=== PATIENT | female | born 1985 | race Caucasian/White ===

== ENCOUNTER 2016-05-10 19:33 | Observation (INO) | payer OTHER ==
[2016-05-10] MEDS ORDERED: SODIUM CHLORIDE 0.9% 1,000 ML IV STA (21:21)
[2016-05-10] MEDS ORDERED: ONDANSETRON 4 MG/2 ML VIAL IVP STA (21:21)
[2016-05-10] MEDS ORDERED: HYDROmorphone 1 MG/ML 1 ML SYRINGE IVP STA ×2 (21:21→23:20)
--- NOTE | 2016-05-10 21:28 | ED ---
Abdominal Pain HPI <DariuszGolden - Last Filed: 05/11/16 01:18> - General Source: patient, RN notes reviewed Mode of arrival: ambulatory Limitations: no limitations <DanielleKasie - Last Filed: 05/11/16 03:46> - General Chief Complaint: Abdominal Pain Stated Complaint: sore throat/upper abdominal & lower back pain Time Seen by Provider: 05/10/16 21:11 - History of Present Illness Initial Comments: Patient is a 31-year-old female with chief complaint of upper abdominal pain radiating to her right back for approximately 1 day. She also reports that she' s had a sore throat for the past 2 weeks. She states that she had a esophageal scope in the told her that she had an infection within her esophagus. Patient reports that this was completed [facility] a week and a half ago. She states that she received the scope at [facility] that she was trying to discover why she frequently gets pancreatitis. Patient reports that her phone was turned off and that she was unable to receive be called in antibiotics. She states that she's had no Motrin Tylenol for pain. She reports that she's had a history of alcoholic pancreatitis. She states that she has not been drinking or denies any other drug use. She states that this abdominal paiN is similar to previous episodes of pancreatitis. Patient reports that she has been admitted approximately 2 months ago for pancreatitis. She states that she's had nausea, but no vomiting and denies any diarrhea. Patient denies any recent shortness of breath, chest pain, numbness or tingling , dysuria or hematuria, constipation or diarrhea, headaches or visual changes, or any other current symptoms (Kasie Santos) - Related Data Home Medications Medication Instructions Recorded Confirmed Ranitidine HCl [Zantac] 75 mg PO BID 05/10/16 05/10/16 Allergies Allergy/AdvReac Type Severity Reaction Status Date / Time ciprofloxacin [From Cipro] Allergy Rash/Hives Verified 05/10/16 21:22 codeine Allergy Rash/Hives Verified 05/10/16 21:22 Penicillins Allergy Unknown Verified 05/10/16 21:22 Childhood tramadol [From Ultram] Allergy Unknown Verified 05/10/16 21:22 tramadol HCl [From Ultram] Allergy seizures Verified 05/10/16 21:22 ibuprofen AdvReac Abdominal Verified 05/10/16 21:22 Pain Review of Systems ROS Other: All systems not noted in ROS Statement are negative. <Golden Arzola - Last Filed: 05/11/16 01:18> ROS Other: All systems not noted in ROS Statement are negative. <DanielleYeseniaKasie - Last Filed: 05/11/16 03:46> ROS Statement: Those systems with pertinent positive or pertinent negative responses have been documented in the HPI. Past Medical History Past Medical History: Fibromyalgia, GERD/Reflux, Neurologic Disorder, Rheumatoid Arthritis (RA), Seizure Disorder, Thyroid Disorder Additional Past Medical History / Comment(s): HELP syndrome 2013, pancreatitis, seizure from taking ultram. History of Any Multi-Drug Resistant Organisms: None Reported Past Surgical History: No Surgical Hx Reported Additional Past Surgical History / Comment(s): DNC Past Anesthesia/Blood Transfusion Reactions: No Reported Reaction Additional Past Anesthesia/Blood Transfusion Reaction / Comment(s): clausterphobia Past Psychological History: Anxiety, Bipolar, Depression Smoking Status: Current every day smoker Past Alcohol Use History: Occasional, Rare Additional Past Alcohol Use History / Comment(s): Smokes 1-2 PPD x 19 yrs.smoking cessation booklet given to pt. Past Drug Use History: None Reported Additional Drug Use History / Comment(s): previous overdoses times 3 in the last year(previously charted hx) - Past Family History Mother Family Medical History: Osteoarthritis (OA) Additional Family Medical History / Comment(s): carpal tunnel Father Family Medical History: Coronary Artery Disease (CAD), Hyperlipidemia, Hypertension, Osteoarthritis (OA) Additional Family Medical History / Comment(s): cabg <Yesenia Santosily - Last Filed: 05/11/16 03:46> General Exam <Golden Arzola - Last Filed: 05/11/16 01:18> Limitations: no limitations General appearance: alert, in no apparent distress Head exam: Present: atraumatic, normocephalic, normal inspection Eye exam: Present: normal appearance, PERRL, EOMI. Absent: scleral icterus, conjunctival injection, periorbital swelling ENT exam: Present: normal exam, mucous membranes moist. Absent: normal oropharynx (Beefy-red oropharynx. Evidence of exudates on bilateral tonsils.) Neck exam: Present: normal inspection. Absent: tenderness, meningismus, lymphadenopathy Respiratory exam: Present: normal lung sounds bilaterally. Absent: respiratory distress, wheezes, rales, rhonchi, stridor Cardiovascular Exam: Present: regular rate, normal rhythm, normal heart sounds. Absent: systolic murmur, diastolic murmur, rubs, gallop, clicks GI/Abdominal exam: Present: soft, tenderness (Left upper quadrant and epigastric tenderness radiating towards her back.), normal bowel sounds. Absent : distended, guarding, rebound, rigid Extremities exam: Present: normal inspection, full ROM, normal capillary refill. Absent: tenderness, pedal edema, joint swelling, calf tenderness Back exam: Present: normal inspection, full ROM, CVA tenderness (L). Absent: tenderness, CVA tenderness (R) Neurological exam: Present: alert, oriented X3, CN II-XII intact Psychiatric exam: Present: normal affect, normal mood Skin exam: Present: warm, dry, intact, normal color. Absent: rash <Kasie Santos - Last Filed: 05/11/16 03:46> - General Exam Comments Initial Comments: Well-appearing 31-year-old female. She does appear to be in discomfort. ( Kasie Santos) Medical Decision Making - Lab Data Result diagrams: 05/10/16 21:42 05/10/16 21:42 <Golden Arzola - Last Filed: 05/11/16 01:18> - Lab Data Result diagrams: 05/10/16 21:42 05/10/16 21:42 - Radiology Data Radiology results: report reviewed <Kasie Santos - Last Filed: 05/11/16 03:46> - Medical Decision Making I reviewed the patient's history and labs and elevated white count. Possibility of a strep throat also causing a glomerular nephritis is being considered the patient is receiving IV antibiotics. Waiting blood cultures did come back. Patient be admitted to on-call hospitalist Dr. Kitchen. Dr. Arzola ( Golden Arzola) Patient is a 31-year-old female with chief complaint of right upper quadrant abdominal pain rating towards the back. She has a history of pancreatitis is concerned is an exacerbation. She also reports that she had a esophageal scope done approximately one week ago at [facility]. They stated that she did have an infection in her throat however she was unable to start antibiotics as her phone was turned off. Patient does test positive for strep today. She does have a white count of 20,000. Patient's amylase and lipase are within normal limits. Patient does have some blood in her urine. There is a possibility that she could have a glomerular nephritis related to strep throat infection. Patient will be admitted at this time with IV hydration and continued antibiotics with Rocephin. Patient agrees the treatment plan will comply. (Kasie Santos) - Lab Data Lab Results 05/10/16 05/10/16 05/10/16 Range/Units 21:42 21:42 21:42 WBC 20.8 H (3.8-10.6) k/uL RBC 5.09 (3.80-5.40) m/uL Hgb 16.1 H (11.4-16.0) gm/dL Hct 48.8 H (34.0-46.0) % MCV 95.9 (80.0-100.0) fL MCH 31.7 (25.0-35.0) pg MCHC 33.0 (31.0-37.0) g/dL RDW 12.8 (11.5-15.5) % Plt Count 296 (150-450) k/uL Neutrophils % 84 % Lymphocytes % 9 % Monocytes % 5 % Eosinophils % 1 % Basophils % 0 % Neutrophils # 17.5 H (1.3-7.7) k/uL Lymphocytes # 1.9 (1.0-4.8) k/uL Monocytes # 0.9 (0-1.0) k/uL Eosinophils # 0.3 (0-0.7) k/uL Basophils # 0.1 (0-0.2) k/uL Sodium 140 (137-145) mmol/L Potassium 3.8 (3.5-5.1) mmol/L Chloride 104 (98-107) mmol/L Carbon Dioxide 22 (22-30) mmol/L Anion Gap 14 mmol/L BUN 6 L (7-17) mg/dL Creatinine 0.60 (0.52-1.04) mg/dL Est GFR (MDRD) Af Amer >60 (>60 ml/min/1.73 sqM) Est GFR (MDRD) Non-Af >60 (>60 ml/min/1.73 sqM) Glucose 96 (74-99) mg/dL Plasma Lactic Acid Johnnie (0.7-2.0) mmol/L Calcium 10.0 (8.4-10.2) mg/dL Total Bilirubin 0.7 (0.2-1.3) mg/dL AST 15 (14-36) U/L ALT 29 (9-52) U/L Alkaline Phosphatase 69 (38-126) U/L Total Protein 8.2 (6.3-8.2) g/dL Albumin 4.8 (3.5-5.0) g/dL Amylase 62 (30-110) U/L Lipase 53 (23-300) U/L Urine Color Urine Appearance (Clear) Urine pH (5.0-8.0) Ur Specific [place] (1.001-1.035) Urine Protein (Negative) Urine Glucose (UA) (Negative) Urine Ketones (Negative) Urine Blood (Negative) Urine Nitrate (Negative) Urine Bilirubin (Negative) Urine Urobilinogen (<2.0) mg/dL Ur Leukocyte Esterase (Negative) Urine RBC (0-5) /hpf Urine WBC (0-5) /hpf Ur Squamous Epith Cells (0-4) /hpf Urine Mucus (None) /hpf Group A Strep Rapid Positive A (Negative) 05/10/16 05/11/16 Range/Units 22:56 00:25 WBC (3.8-10.6) k/uL RBC (3.80-5.40) m/uL Hgb (11.4-16.0) gm/dL Hct (34.0-46.0) % MCV (80.0-100.0) fL MCH (25.0-35.0) pg MCHC (31.0-37.0) g/dL RDW (11.5-15.5) % Plt Count (150-450) k/uL Neutrophils % % Lymphocytes % % Monocytes % % Eosinophils % % Basophils % % Neutrophils # (1.3-7.7) k/uL Lymphocytes # (1.0-4.8) k/uL Monocytes # (0-1.0) k/uL Eosinophils # (0-0.7) k/uL Basophils # (0-0.2) k/uL Sodium (137-145) mmol/L Potassium (3.5-5.1) mmol/L Chloride (98-107) mmol/L Carbon Dioxide (22-30) mmol/L Anion Gap mmol/L BUN (7-17) mg/dL Creatinine (0.52-1.04) mg/dL Est GFR (MDRD) Af Amer (>60 ml/min/1.73 sqM) Est GFR (MDRD) Non-Af (>60 ml/min/1.73 sqM) Glucose (74-99) mg/dL Plasma Lactic Acid Johnnie <0.5 L (0.7-2.0) mmol/L Calcium (8.4-10.2) mg/dL Total Bilirubin (0.2-1.3) mg/dL AST (14-36) U/L ALT (9-52) U/L Alkaline Phosphatase (38-126) U/L Total Protein (6.3-8.2) g/dL Albumin (3.5-5.0) g/dL Amylase (30-110) U/L Lipase (23-300) U/L Urine Color Yellow Urine Appearance Cloudy H (Clear) Urine pH 6.5 (5.0-8.0) Ur Specific [place] 1.013 (1.001-1.035) Urine Protein Negative (Negative) Urine Glucose (UA) Negative (Negative) Urine Ketones 2+ H (Negative) Urine Blood Trace H (Negative) Urine Nitrate Negative (Negative) Urine Bilirubin Negative (Negative) Urine Urobilinogen <2.0 (<2.0) mg/dL Ur Leukocyte Esterase Trace H (Negative) Urine RBC 6 H (0-5) /hpf Urine WBC 1 (0-5) /hpf Ur Squamous Epith Cells 6 H (0-4) /hpf Urine Mucus Rare H (None) /hpf Group A Strep Rapid (Negative) - Radiology Data KUB x-ray was obtained and shows evidence of acute changes. A nonacute abdomen. No evidence of intestinal obstruction or pneumoperitoneum. (Kasie Santos) Disposition <Golden Arzola - Last Filed: 05/11/16 01:18> Time of Disposition: 23:50 <Kasie Santos - Last Filed: 05/11/16 03:46> Clinical Impression: Strep pharyngitis, Hematuria, Flank pain Disposition: ADMITTED IP TO THIS HOSP Condition: Stable
[2016-05-10] MEDS ORDERED: ACETAMINOPHEN TAB 500 MG TAB PO STA (21:38)
[2016-05-10 21:51] LABS: Basophils # (A) 0.1 k/uL (0-0.2); Basophils % (A) 0 %; CH 32.7; CHCM 34.2; Eosinophils # (A) 0.3 k/uL (0-0.7); Eosinophils % (A) 1 %; HCT 48.8 % (34.0-46.0); HDW 2.01; HGB 16.1 gm/dL (11.4-16.0); Luc % (Auto) 1; Lymphocytes # (A) 1.9 k/uL (1.0-4.8); Lymphocytes % (A) 9 %; MCH 31.7 pg (25.0-35.0); MCV 95.9 fL (80.0-100.0); Mean Platelet Volume 6.3; Monocytes # (A) 0.9 k/uL (0-1.0); Monocytes % (A) 5 %; Neutrophils # (A) 17.5 k/uL (1.3-7.7); Neutrophils % (A) 84 %; RBC 5.09 m/uL (3.80-5.40); RDW 12.8 % (11.5-15.5); WBC 20.8 k/uL (3.8-10.6); WBC (Perox) 21.46
[2016-05-10 22:01] LABS: ALT 29 U/L (9-52); AST 15 U/L (14-36); Alkaline Phosphatase 69 U/L (38-126); Amylase 62 U/L (30-110); Anion Gap 14 mmol/L; Blood Urea Nitrogen 6 mg/dL (7-17); Carbon Dioxide 22 mmol/L (22-30); Chloride 104 mmol/L (98-107); Glucose 96 mg/dL (74-99); Non-African American GFR(MDRD) >60 (>60 ml/min/1.73 sqM); Potassium 3.8 mmol/L (3.5-5.1); Sodium 140 mmol/L (137-145); Total Bilirubin 0.7 mg/dL (0.2-1.3); Total Protein 8.2 g/dL (6.3-8.2)
--- NOTE | 2016-05-10 22:03 | XR ---
EXAMINATION TYPE: XR KUB DATE OF EXAM: 05/10/2016 9:54 PM COMPARISON: 03/11/2016 HISTORY: Abdominal pain TECHNIQUE: 2 views FINDINGS: Bowel gas pattern is normal. There is no sign of intestinal obstruction or pneumoperitoneum . Fecal pattern is normal. There is no sign of a mass. There are no pathologic calcifications over th e kidneys. Lung bases are clear. IMPRESSION: Nonacute abdomen. No change.
[2016-05-10 23:12] LABS: Appearance,Urine Cloudy (Clear); Bilirubin,Urine Negative (Negative); Glucose,Urine (UA) Negative (Negative); Ketones,Urine 2+ (Negative); Leukocyte Esterase,Urine Trace (Negative); Mucus,Urine Rare /hpf; Nitrite,Urine Negative (Negative); PH, Urine 6.5 (5.0-8.0); Particle Count 2703; Protein,Urine Negative (Negative); RBC,Urine 6 /hpf (0-5); Specific Gravity,Urine 1.013 (1.001-1.035); Squamous Epithelial Cell,Urine 6 /hpf (0-4); UA Billing (MACRO vs. MICRO) MICRO; Urobilinogen,Urine <2.0 mg/dL (<2.0); WBC,Urine 1 /hpf (0-5)
[2016-05-10] MEDS ORDERED: SODIUM CHLORIDE 0.9% 1,000 ML IV ONE (23:22)
[2016-05-10] MEDS ORDERED: BENZOCAINE/MENTHOL LOZENG 1 EACH LOZENGE MUCOUS MEM PRN (23:52)
[2016-05-10] MEDS ORDERED: ACETAMINOPHEN TAB 325 MG TAB PO PRN (23:52)
[2016-05-10] MEDS ORDERED: NALOXONE 0.4 MG/ML 1 ML VIAL IV PRN (23:52)
[2016-05-10] MEDS ORDERED: ONDANSETRON 4 MG/2 ML VIAL IVP PRN (23:52)
[2016-05-11] MEDS: SODIUM CHLORIDE 0.9% 1,000 ML IV SCH ×2 (01:36→08:31)
[2016-05-11 02:32] VITALS: BMI 21.7
[2016-05-11] MEDS: HYDROmorphone 1 MG/ML 1 ML SYRINGE IV PRN ×5 (02:45→15:05)
[2016-05-11] MEDS: ALPRAZolam 0.25 MG TAB PO PRN ×3 (02:48→15:06)
[2016-05-11 07:00] LABS: Basophils # (A) 0.1 k/uL (0-0.2); Basophils % (A) 0 %; CH 32.4; CHCM 32.9; Eosinophils # (A) 0.3 k/uL (0-0.7); Eosinophils % (A) 2 %; HCT 42.4 % (34.0-46.0); HGB 13.7 gm/dL (11.4-16.0); Luc # (Auto) 0.28; Luc % (Auto) 2; Lymphocytes % (A) 16 %; MCHC 32.3 g/dL (31.0-37.0); MCV 98.9 fL (80.0-100.0); Mean Platelet Volume 6.5; Monocytes # (A) 1.1 k/uL (0-1.0); Monocytes % (A) 6 %; Neutrophils # (A) 13.9 k/uL (1.3-7.7); Neutrophils % (A) 74 %; RBC 4.29 m/uL (3.80-5.40); RDW 12.6 % (11.5-15.5); WBC 18.6 k/uL (3.8-10.6); WBC (Perox) 19.17
[2016-05-11 08:39] VITALS: RESP 16
[2016-05-11 12:45] VITALS: BP 99/62; PULSE 81; TEMP 97.6
--- NOTE | 2016-05-11 19:57 | HP ---
DATE OF ADMISSION: 05/11/2016 PRESENTING COMPLAINT: Throat hurting. HISTORY OF PRESENTING COMPLAINT: This is a 31-year-old patient with no family doctor who presented with throat hurting, fever, rundown, tired, achiness all over. Patient's previous history includes rheumatoid arthritis, not following ( ) chronic pancreatitis, some history of migraine and scoliosis. Patient had a fever in the ER. She was positive for strep A and throat was hurting. Subsequently she received ceftriaxone in the ER. Patient is feeling better. Fever has started to come down. REVIEW OF SYSTEMS: CONSTITUTIONAL: Weak, tired, febrile. HEENT: Sore throat. RESPIRATORY: None. CARDIOVASCULAR: None. GASTROINTESTINAL: None. GENITOURINARY: None. MUSCULOSKELETAL: None. DERMATOLOGIC: None. HEMATOLOGIC: None. LYMPHATIC: None. PSYCHIATRY: None. NEUROLOGICAL: None. PAST MEDICAL HISTORY: 1. GERD. 2. Rheumatoid arthritis. 3. HELLP syndrome in 2013. 4. Pancreatitis. 5. Seizures from Ultram. PAST SURGICAL HISTORY: D&C. SOCIAL HISTORY: Patient smokes about a pack a day. Living with her parents. Patient has overdosed 3 times. FAMILY HISTORY: Osteoarthritis. HOME MEDICATIONS: Zantac 75 mg b.i.d. ALLERGIES: 1. CIPRO. 2. CODEINE. 3. PENICILLIN. 4. ULTRAM. 5. IBUPROFEN. PHYSICAL EXAMINATION: VITAL SIGNS ON PRESENTATION: Temperature 101.1, pulse 123, respiration 20, blood pressure 120/84, pulse ox 100% on room air. GENERAL APPEARANCE: Average build. Sitting up, not in distress. EYES: Pupils equal. Conjunctivae normal. HEENT: Oral cavity showing some prominent tonsils, some redness. NECK: JVD not raised. Mass not palpable. RESPIRATORY: Effort normal. LUNGS: Fair air entry. CARDIOVASCULAR: First and second seconds normal. No edema. ABDOMEN: Soft, non-tender. Liver and spleen not palpable. LYMPHATIC: No lymph node palpable in neck or axillae. PSYCHIATRY: Alert and oriented x3. Mood and affect normal. NEUROLOGICAL: Pupils equal. Cranial nerves grossly intact. Power and sensation grossly intact. ASSESSMENT: 1. Acute streptococcal pharyngitis. 2. Acute tonsillitis. 3. Chronic nicotine dependence. Patient is a smoker. 4. Sepsis-like picture on presentation. PLAN: Patient was given IV fluid boluses, started on IV ceftriaxone in the ER, with which patient is doing better. Care was discussed with the patient. Patient was told to avoid cold liquids and try warm liquids, including tea and coffee. It was also re-emphasized that patient should establish and follow with a family doctor.
--- NOTE | 2016-05-12 21:28 | DS ---
DATE OF ADMISSION: 05/11/2016 DATE OF DISCHARGE: 05/11/2016 FINAL DIAGNOSES: 1. Acute severe streptococcal pharyngitis. 2. Acute tonsillitis. 3. Chronic nicotine dependence. Patient is a smoker. 4. Sepsis-like picture on presentation from septic streptococcal pharyngitis. HOSPITAL COURSE: This patient presented with the above and given IV ceftriaxone, had septic presentation: By the time of discharge, doing better, able to swallow. Care was discussed with the patient. The patient is advised against smoking. On exam, lungs are clear. CARDIOVASCULAR: First and second sounds normal. DISCHARGE MEDICATIONS: 1. Zantac 75 mg q.i.d. 2. Tylenol 650 mg q.6 p.r.n. 3. Ceftin 15 grams b.i.d. Follow up with Dr. Melo in 3 days.
== END 2016-05-11 17:35 | disposition home or self-care (01) ==
LOC: EC 19:33 → 6PED 05-11 01:19 → INTOOBSV 05-11 01:19
PROVIDERS: ADMIT Hospitalist; ATTEND Hospitalist
DX: J02.0 Streptococcal pharyngitis (principal); R31.9 Hematuria, unspecified; K21.9 Gastro-esophageal reflux disease without esophagitis; F17.200 Nicotine dependence, unspecified, uncomplicated; Z79.899 Other long term (current) drug therapy; Z88.0 Allergy status to penicillin; Z88.5 Allergy status to narcotic agent; Z88.1 Allergy status to other antibiotic agents; Z88.8 Allergy status to other drugs, medicaments and biological substances; R10.9 Unspecified abdominal pain; M54.5 Low back pain
CPT/HCPCS: 96365; 96375 ×2; 96376; 96361; 99285; 36415 ×2; 80053; 82150; 83605; 83690; 85025 ×2; 81001; 87040; 87430; 74000; G0378; J2405; J0696 ×2; J1170 ×2; 96366

== ENCOUNTER → 2016-06-09 | Outpatient (CLI) | payer OTHER ==
--- NOTE | 2016-06-09 18:38 | US ---
EXAMINATION TYPE: US thyroid st tissue head/neck DATE OF EXAM: 06/09/2016 4:55 PM COMPARISON: NONE CLINICAL HISTORY: E03.9 HYPOTHYROIDISM. GLAND SIZE: Right Lobe: 5.6 x 1.8 x 2.2 cm Overall Parenchyma: heterogenous Left Lobe: 5.6 x 1.2 x 2.2 cm Overall Parenchyma: heterogeneous Isthmus Thickness: 0.4 cm NODULES RIGHT: # of nodules measured on right: 0 LEFT: # of nodules measured on left: 1 1. 0.7 X 0.4 x 0.6 cm isoechoic solid nodule at the lower pole with well-defined margins; present w ith microcalcifications. This nodule is wider than tall and shows intranodular vascularity. Prior size: no prior ISTHMUS: # of nodules measured in the isthmus: 0 TECHNOLOGIST IMPRESSION: Bilateral neck scanned, no abnormal lymphadenopathy noted. IMPRESSION: Small isoechoic oval nodule in the left thyroid lobe of doubtful significance. Otherwise negative exa m. Thyroid gland is upper limit of normal size.
== END | disposition home or self-care (01) ==
LOC: RADUSWWP 16:42
PROVIDERS: ATTEND Family Medicine
DX: E03.9 Hypothyroidism, unspecified (principal)
CPT/HCPCS: 76536

== ENCOUNTER 2016-06-21 07:54 | Inpatient (IN) | payer OTHER ==
[2016-06-21] MEDS ORDERED: SODIUM CHLORIDE 0.9% 1,000 ML IV STA (08:13)
[2016-06-21] MEDS ORDERED: HYDROmorphone 1 MG/ML 1 ML SYRINGE IVP STA (08:41)
[2016-06-21] MEDS ORDERED: ONDANSETRON 4 MG/2 ML VIAL IVP STA (08:41)
[2016-06-21 09:13] LABS: ALT 23 U/L (9-52); AST 25 U/L (14-36); Alcohol <10 mg/dL; Alkaline Phosphatase 69 U/L (38-126); Anion Gap 15 mmol/L; Blood Urea Nitrogen 9 mg/dL (7-17); Calcium 9.8 mg/dL (8.4-10.2); Carbon Dioxide 20 mmol/L (22-30); Chloride 102 mmol/L (98-107); Glucose 121 mg/dL (74-99); Non-African American GFR(MDRD) >60 (>60 ml/min/1.73 sqM); Sodium 137 mmol/L (137-145); Total Protein 8.1 g/dL (6.3-8.2)
[2016-06-21 09:14] LABS: Basophils # (A) 0.1 k/uL (0-0.2); Basophils % (A) 1 %; CH 32.4; CHCM 34.4; Eosinophils # (A) 0.1 k/uL (0-0.7); Eosinophils % (A) 1 %; HCT 45.3 % (34.0-46.0); HDW 2.14; HGB 15.5 gm/dL (11.4-16.0); Luc # (Auto) 0.26; Luc % (Auto) 3; Lymphocytes # (A) 1.8 k/uL (1.0-4.8); Lymphocytes % (A) 21 %; MCH 32.3 pg (25.0-35.0); MCHC 34.2 g/dL (31.0-37.0); MCV 94.6 fL (80.0-100.0); Mean Platelet Volume 6.8; Monocytes # (A) 0.5 k/uL (0-1.0); Monocytes % (A) 6 %; Neutrophils # (A) 5.9 k/uL (1.3-7.7); Neutrophils % (A) 68 %; RDW 12.8 % (11.5-15.5); WBC 8.7 k/uL (3.8-10.6); WBC (Perox) 9.12
--- NOTE | 2016-06-21 09:15 | ED ---
Abdominal Pain HPI - General Chief Complaint: Abdominal Pain Stated Complaint: abd pain Time Seen by Provider: 06/21/16 08:12 Source: patient Mode of arrival: ambulatory - History of Present Illness Initial Comments: 31-year-old female patient presents to emergency department today for evaluation of upper abdominal pain that radiates to her back. Patient states that she has had the pain for the last 2 days. She states the pain is severe, crampy, squeezing pain. She has had nausea without vomiting. Denies any constipation or diarrhea. She denies any fever or chills with this. Patient has a history significant for pancreatitis. She reports that her physicians have been unable to determine a cause of pancreatitis, however she has been diagnosed with alcoholic pancreatitis in the past. Patient denies any chest pain, shortness of breath, weakness, dizziness, urinary urgency, urinary frequency, dysuria, hematuria, dark, bloody, or black stools. - Related Data Home Medications Medication Instructions Recorded Confirmed Ranitidine HCl [Zantac] 75 mg PO BID 05/10/16 06/21/16 Ergocalciferol [Vitamin D2] 50,000 unit PO FR 06/21/16 06/21/16 Magnesium 200 mg PO HS 06/21/16 06/21/16 Allergies Allergy/AdvReac Type Severity Reaction Status Date / Time ciprofloxacin [From Cipro] Allergy Rash/Hives Verified 06/21/16 08:23 codeine Allergy Rash/Hives Verified 06/21/16 08:23 Penicillins Allergy Unknown Verified 06/21/16 08:23 Childhood tramadol [From Ultram] Allergy Unknown Verified 06/21/16 08:23 tramadol HCl [From Ultram] Allergy seizures Verified 06/21/16 08:23 ibuprofen AdvReac Abdominal Verified 06/21/16 08:23 Pain Review of Systems ROS Statement: Those systems with pertinent positive or pertinent negative responses have been documented in the HPI. ROS Other: All systems not noted in ROS Statement are negative. Past Medical History Past Medical History: Fibromyalgia, GERD/Reflux, Neurologic Disorder, Rheumatoid Arthritis (RA), Seizure Disorder, Thyroid Disorder Additional Past Medical History / Comment(s): HELP syndrome 2013, pancreatitis, seizure from taking ultram. History of Any Multi-Drug Resistant Organisms: None Reported Past Surgical History: No Surgical Hx Reported Additional Past Surgical History / Comment(s): DNC Past Anesthesia/Blood Transfusion Reactions: No Reported Reaction Additional Past Anesthesia/Blood Transfusion Reaction / Comment(s): clausterphobia Past Psychological History: Anxiety, Bipolar, Depression Additional Psychological History / Comment(s): no mental health doctor Smoking Status: Current every day smoker Past Alcohol Use History: Occasional, Rare Additional Past Alcohol Use History / Comment(s): Smokes 1-2 PPD x 19 yrs.smoking cessation booklet given to pt. Past Drug Use History: None Reported Additional Drug Use History / Comment(s): previous overdoses times 3 in the last year(previously charted hx) - Past Family History Mother Family Medical History: Osteoarthritis (OA) Additional Family Medical History / Comment(s): carpal tunnel Father Family Medical History: Coronary Artery Disease (CAD), Hyperlipidemia, Hypertension, Osteoarthritis (OA) Additional Family Medical History / Comment(s): cabg General Exam General appearance: alert, in no apparent distress Eye exam: Present: normal appearance, PERRL, EOMI. Absent: scleral icterus, conjunctival injection, periorbital swelling ENT exam: Present: normal exam, mucous membranes moist Neck exam: Present: normal inspection. Absent: tenderness, meningismus, lymphadenopathy Respiratory exam: Present: normal lung sounds bilaterally. Absent: respiratory distress, wheezes, rales, rhonchi, stridor Cardiovascular Exam: Present: regular rate, normal rhythm, normal heart sounds. Absent: systolic murmur, diastolic murmur, rubs, gallop, clicks GI/Abdominal exam: Present: soft, tenderness (Midepigastric tenderness), normal bowel sounds. Absent: distended, guarding, rebound, rigid Back exam: Present: normal inspection. Absent: CVA tenderness (R), CVA tenderness (L) Neurological exam: Present: alert, oriented X3, CN II-XII intact Psychiatric exam: Present: normal affect, normal mood Skin exam: Present: warm, dry, intact, normal color. Absent: rash Course Vital Signs 06/21/16 06/21/16 06/21/16 08:04 08:51 09:21 Temperature 98.4 F 97.9 F 97.7 F Pulse Rate 138 H 117 H 106 H Respiratory 18 14 18 Rate Blood Pressure 129/86 133/87 122/83 O2 Sat by Pulse 99 98 100 Oximetry Medical Decision Making - Lab Data Result diagrams: 06/21/16 08:15 06/21/16 08:15 Lab Results 06/21/16 06/21/16 06/21/16 Range/Units 08:15 08:15 08:15 WBC 8.7 (3.8-10.6) k/uL RBC 4.80 (3.80-5.40) m/uL Hgb 15.5 (11.4-16.0) gm/dL Hct 45.3 (34.0-46.0) % MCV 94.6 (80.0-100.0) fL MCH 32.3 (25.0-35.0) pg MCHC 34.2 (31.0-37.0) g/dL RDW 12.8 (11.5-15.5) % Plt Count 219 (150-450) k/uL Neutrophils % 68 % Lymphocytes % 21 % Monocytes % 6 % Eosinophils % 1 % Basophils % 1 % Neutrophils # 5.9 (1.3-7.7) k/uL Lymphocytes # 1.8 (1.0-4.8) k/uL Monocytes # 0.5 (0-1.0) k/uL Eosinophils # 0.1 (0-0.7) k/uL Basophils # 0.1 (0-0.2) k/uL Sodium 137 (137-145) mmol/L Potassium 4.0 (3.5-5.1) mmol/L Chloride 102 (98-107) mmol/L Carbon Dioxide 20 L (22-30) mmol/L Anion Gap 15 mmol/L BUN 9 (7-17) mg/dL Creatinine 0.57 (0.52-1.04) mg/dL Est GFR (MDRD) Af Amer >60 (>60 ml/min/1.73 sqM) Est GFR (MDRD) Non-Af >60 (>60 ml/min/1.73 sqM) Glucose 121 H (74-99) mg/dL Calcium 9.8 (8.4-10.2) mg/dL Total Bilirubin 1.0 (0.2-1.3) mg/dL AST 25 (14-36) U/L ALT 23 (9-52) U/L Alkaline Phosphatase 69 (38-126) U/L Total Protein 8.1 (6.3-8.2) g/dL Albumin 4.5 (3.5-5.0) g/dL Amylase 438 H* (30-110) U/L Lipase 2280 H (23-300) U/L Urine Color Urine Appearance (Clear) Urine pH (5.0-8.0) Ur Specific [place] (1.001-1.035) Urine Protein (Negative) Urine Glucose (UA) (Negative) Urine Ketones (Negative) Urine Blood (Negative) Urine Nitrite (Negative) Urine Bilirubin (Negative) Urine Urobilinogen (<2.0) mg/dL Ur Leukocyte Esterase (Negative) Urine RBC (0-5) /hpf Urine WBC (0-5) /hpf Ur Squamous Epith Cells (0-4) /hpf Urine Mucus (None) /hpf Urine HCG, Qual (Not Detectd) Urine Opiates Screen Detected H (NotDetected) Ur Oxycodone Screen Not Detected (NotDetected) Urine Methadone Screen Not Detected (NotDetected) Ur Propoxyphene Screen Not Detected (NotDetected) Ur Barbiturates Screen Detected H (NotDetected) U Tricyclic Antidepress Not Detected (NotDetected) Ur Phencyclidine Scrn Not Detected (NotDetected) Ur Amphetamines Screen Not Detected (NotDetected) U Methamphetamines Scrn Detected H (NotDetected) U Benzodiazepines Scrn Not Detected (NotDetected) Urine Cocaine Screen Detected H (NotDetected) U Marijuana (THC) Screen Not Detected (NotDetected) Serum Alcohol <10 mg/dL 06/21/16 06/21/16 Range/Units 08:15 09:20 WBC (3.8-10.6) k/uL RBC (3.80-5.40) m/uL Hgb (11.4-16.0) gm/dL Hct (34.0-46.0) % MCV (80.0-100.0) fL MCH (25.0-35.0) pg MCHC (31.0-37.0) g/dL RDW (11.5-15.5) % Plt Count (150-450) k/uL Neutrophils % % Lymphocytes % % Monocytes % % Eosinophils % % Basophils % % Neutrophils # (1.3-7.7) k/uL Lymphocytes # (1.0-4.8) k/uL Monocytes # (0-1.0) k/uL Eosinophils # (0-0.7) k/uL Basophils # (0-0.2) k/uL Sodium (137-145) mmol/L Potassium (3.5-5.1) mmol/L Chloride (98-107) mmol/L Carbon Dioxide (22-30) mmol/L Anion Gap mmol/L BUN (7-17) mg/dL Creatinine (0.52-1.04) mg/dL Est GFR (MDRD) Af Amer (>60 ml/min/1.73 sqM) Est GFR (MDRD) Non-Af (>60 ml/min/1.73 sqM) Glucose (74-99) mg/dL Calcium (8.4-10.2) mg/dL Total Bilirubin (0.2-1.3) mg/dL AST (14-36) U/L ALT (9-52) U/L Alkaline Phosphatase (38-126) U/L Total Protein (6.3-8.2) g/dL Albumin (3.5-5.0) g/dL Amylase (30-110) U/L Lipase (23-300) U/L Urine Color Yellow Urine Appearance Cloudy H (Clear) Urine pH 6.0 (5.0-8.0) Ur Specific [place] 1.025 (1.001-1.035) Urine Protein 1+ H (Negative) Urine Glucose (UA) Negative (Negative) Urine Ketones 4+ H (Negative) Urine Blood Moderate H (Negative) Urine Nitrite Negative (Negative) Urine Bilirubin 1+ H (Negative) Urine Urobilinogen 3.0 (<2.0) mg/dL Ur Leukocyte Esterase Trace H (Negative) Urine RBC 43 H (0-5) /hpf Urine WBC 3 (0-5) /hpf Ur Squamous Epith Cells 13 H (0-4) /hpf Urine Mucus Few H (None) /hpf Urine HCG, Qual Not Detected (Not Detectd) Urine Opiates Screen (NotDetected) Ur Oxycodone Screen (NotDetected) Urine Methadone Screen (NotDetected) Ur Propoxyphene Screen (NotDetected) Ur Barbiturates Screen (NotDetected) U Tricyclic Antidepress (NotDetected) Ur Phencyclidine Scrn (NotDetected) Ur Amphetamines Screen (NotDetected) U Methamphetamines Scrn (NotDetected) U Benzodiazepines Scrn (NotDetected) Urine Cocaine Screen (NotDetected) U Marijuana (THC) Screen (NotDetected) Serum Alcohol mg/dL - EKG Data -: EKG Interpreted by Me 06/21/16 09:28 EKG obtained at 0903 reveals sinus tachycardia with a ventricular rate of 102, OR interval 146, QRS duration 78, QT 346, QTc 450. No evidence of ST elevation or depression. Disposition Clinical Impression: Acute pancreatitis, Polysubstance abuse, Chronic abdominal pain Disposition: ADMITTED IP TO THIS HOSP Condition: Fair
[2016-06-21 09:21] LABS: Amylase 438 U/L (30-110)
[2016-06-21 09:37] LABS: Appearance,Urine Cloudy (Clear); Bilirubin,Urine 1+ (Negative); Glucose,Urine (UA) Negative (Negative); Ketones,Urine 4+ (Negative); Leukocyte Esterase,Urine Trace (Negative); Mucus,Urine Few /hpf; Nitrite,Urine Negative (Negative); Particle Count 8923; Protein,Urine 1+ (Negative); RBC,Urine 43 /hpf (0-5); Specific Gravity,Urine 1.025 (1.001-1.035); Squamous Epithelial Cell,Urine 13 /hpf (0-4); UA Billing (MACRO vs. MICRO) MICRO; WBC,Urine 3 /hpf (0-5)
[2016-06-21] MEDS ORDERED: NALOXONE 0.4 MG/ML 1 ML VIAL IV PRN (09:51)
[2016-06-21] MEDS: SODIUM CHLORIDE 0.9% 1,000 ML IV SCH ×2 (10:12→19:23)
[2016-06-21] MEDS: HYDROmorphone 1 MG/ML 1 ML SYRINGE IV PRN ×3 (11:25→17:26)
[2016-06-21] MEDS: ALPRAZolam 0.25 MG TAB PO PRN ×2 (13:26→19:23)
[2016-06-21] MEDS: ONDANSETRON 4 MG/2 ML VIAL IVP PRN ×2 (13:29→21:10)
[2016-06-21 15:35] LABS: Glucose,Whole Blood 170 mg/dL (75-99)
--- NOTE | 2016-06-21 18:03 | P.HPIM ---
History of Present Illness H&P Date: 06/21/16 Chief Complaint: Abdominal pain Patient is a 31-year-old female patient of Dr. Rodriguez who presented to [facility] emergency room with a chief complaint of abdominal pain radiating to the back that started 2 days prior to admission She was evaluated in emergency room and had significantly elevated amylase and lipase suggestive of acute pancreatitis. Patient states that she had previous episodes of acute pancreatitis in the past last episode was 2 months ago She denies drinking alcohol at this time she admits to drinking in the past Also her urine toxicology screen was positive for opiates, barbiturates, methamphetamine, and cocaine and patient stated that she does not know how this has showed up in her urine she denies any drug use. Past Medical History Past Medical History: Fibromyalgia, GERD/Reflux, Neurologic Disorder, Rheumatoid Arthritis (RA), Seizure Disorder, Thyroid Disorder Additional Past Medical History / Comment(s): Pt recently admitted to [facility] on with acute, severe strp pharyngitis/tonsillitis/ sepsis like picture. Other hx: HELP syndrome 2013, pancreatitis, seizure from taking ultram couple years ago. History of Any Multi-Drug Resistant Organisms: None Reported Past Surgical History: No Surgical Hx Reported Additional Past Surgical History / Comment(s): [facility] found [facility] pt, D&C. Past Anesthesia/Blood Transfusion Reactions: No Reported Reaction Additional Past Anesthesia/Blood Transfusion Reaction / Comment(s): clausterphobia Past Psychological History: ADD/ADHD, Anxiety, Bipolar, Depression Additional Psychological History / Comment(s): Pt denies past suicide attempts, however, previous medical records indicate that pt has attempted suicide with overdosing. Pt states she is not thinking of suicide and does not have suicide plans at this time. Pt lives with her parents. She is independent. Smoking Status: Current every day smoker Past Alcohol Use History: Occasional, Rare Additional Past Alcohol Use History / Comment(s): Smokes 1-2 PPD x 19 yrs.smoking cessation booklet given to pt. Past Drug Use History: Cocaine, Methamphetamine, Opiates Additional Drug Use History / Comment(s): Pt states she was told in ER today that her urine was positive for drugs but she has no recollection of taking any drugs. - Past Family History Mother Family Medical History: Osteoarthritis (OA) Additional Family Medical History / Comment(s): carpal tunnel Father Family Medical History: Coronary Artery Disease (CAD), Hyperlipidemia, Hypertension, Osteoarthritis (OA) Additional Family Medical History / Comment(s): cabg Medications and Allergies Home Medications Medication Instructions Recorded Confirmed Type Ranitidine HCl [Zantac] 75 mg PO BID 05/10/16 06/21/16 History Ergocalciferol [Vitamin D2] 50,000 unit PO FR 06/21/16 06/21/16 History Magnesium 200 mg PO HS 06/21/16 06/21/16 History Allergies Allergy/AdvReac Type Severity Reaction Status Date / Time ciprofloxacin [From Cipro] Allergy Rash/Hives Verified 06/21/16 08:23 codeine Allergy Rash/Hives Verified 06/21/16 08:23 Penicillins Allergy Unknown Verified 06/21/16 08:23 Childhood tramadol [From Ultram] Allergy Unknown Verified 06/21/16 08:23 tramadol HCl [From Ultram] Allergy seizures Verified 06/21/16 08:23 ibuprofen AdvReac Abdominal Verified 06/21/16 08:23 Pain Physical Exam Vitals: Vital Signs Temp Pulse Pulse Resp BP BP Pulse Ox 06/21/16 15:00 98 F 97 20 119/67 96 06/21/16 10:33 97.1 F L 102 H 19 131/88 98 06/21/16 10:08 97.9 F 106 H 18 118/82 99 Intake and Output 06/21/16 06/21/16 06/21/16 06:59 14:59 22:59 Intake Total 1000 Balance 1000 Intake: Amount of Fluid Infused ( 1000 ml) Other: # Voids 2 In general patient is alert and oriented 3 in no apparent distress HEENT head normocephalic and atraumatic Neck is supple no JVD no goiter no lymphadenopathy Chest is clear to auscultation no wheezing Cardiac exam reveals regular heart sounds no murmurs Abdomen is soft with severe tenderness in the epigastric area no organomegaly, with normal bowel sounds Extremity exam reveals no edema no cyanosis or clubbing Results CBC & Chem 7: 06/21/16 08:15 06/21/16 08:15 Labs: Abnormal Lab Results - Last 24 Hours (Table) 06/21/16 Range/Units 15:31 POC Glucose (mg/dL) 170 H (75-99) mg/dL Thrombosis Risk Factor Assmnt - Choose All That Apply Any of the Below Risk Factors Present?: No Other Risk Factors: No Other congenital or acquired thrombophilia - If yes, enter type in comment: No Thrombosis Risk Factor Assessment Level: Very Low Risk Assessment and Plan Plan: #1 acute pancreatitis #2 recurrent episodes of pancreatitis #3 possible alcohol use #4 possible drug use At this time continue with nothing by mouth continue with IV fluid Continue was pain management Consultation for gastroenterology was initiated Will also consult psychiatry for possible polysubstance abuse Will follow in a.m.
[2016-06-21] MEDS: HYDROmorphone 1 MG/ML 1 ML SYRINGE IVP PRN (21:11)
[2016-06-22] MEDS: ALPRAZolam 0.25 MG TAB PO PRN ×4 (01:15→19:33)
[2016-06-22] MEDS: HYDROmorphone 1 MG/ML 1 ML SYRINGE IVP PRN ×6 (01:15→21:15)
[2016-06-22] MEDS: SODIUM CHLORIDE 0.9% 1,000 ML IV SCH ×3 (01:19→19:33)
[2016-06-22] MEDS: ONDANSETRON 4 MG/2 ML VIAL IVP PRN ×2 (05:13→19:34)
[2016-06-22 09:48] LABS: Basophils # (A) 0.1 k/uL (0-0.2); Basophils % (A) 1 %; CH 32.4; CHCM 34.7; Eosinophils # (A) 0.3 k/uL (0-0.7); Eosinophils % (A) 5 %; HCT 39.7 % (34.0-46.0); HDW 2.23; HGB 13.8 gm/dL (11.4-16.0); Luc # (Auto) 0.25; Luc % (Auto) 4; Lymphocytes # (A) 2.2 k/uL (1.0-4.8); Lymphocytes % (A) 33 %; MCH 32.6 pg (25.0-35.0); MCHC 34.8 g/dL (31.0-37.0); MCV 93.7 fL (80.0-100.0); Mean Platelet Volume 6.6; Monocytes # (A) 0.4 k/uL (0-1.0); Monocytes % (A) 6 %; Neutrophils # (A) 3.4 k/uL (1.3-7.7); Neutrophils % (A) 51 %; RBC 4.24 m/uL (3.80-5.40); WBC 6.6 k/uL (3.8-10.6); WBC (Perox) 7.01
[2016-06-22 10:18] LABS: ALT 21 U/L (9-52); AST 19 U/L (14-36); Alkaline Phosphatase 52 U/L (38-126); Amylase 207 U/L (30-110); Anion Gap 13 mmol/L; Blood Urea Nitrogen 4 mg/dL (7-17); Calcium 8.9 mg/dL (8.4-10.2); Carbon Dioxide 19 mmol/L (22-30); Chloride 108 mmol/L (98-107); Glucose 72 mg/dL (74-99); Non-African American GFR(MDRD) >60 (>60 ml/min/1.73 sqM); Sodium 140 mmol/L (137-145); Total Bilirubin 0.6 mg/dL (0.2-1.3); Total Protein 6.6 g/dL (6.3-8.2)
--- NOTE | 2016-06-22 10:47 | P.CONS ---
History of Present Illness - Reason for Consult Consult date: 06/22/16 Pancreatitis Requesting physician: Reji Finch - History of Present Illness 31-year-old female past medical history fibromyalgia, Bipolar depression, claustrophobia, ADHD, GERD, rheumatoid arthritis, seizure disorder, hypothyroidism, HELP syndrome 2013, and chronic idiopathic pancreatitis worked up at [facility] extensive testing without definitive etiology. Admitted with acute upper abdominal pain radiating to her back 3 days with elevated amylase lipase. Urinalysis detected opiates barbiturates methamphetamines and cocaine. Denies illicit drug use "not sure how those drugs showed up in my urine". Serum alcohol less than 10. Consultation requested for pancreatitis. Amylase 438. Lipase 2280. LFTs bilirubin within normal limits. White count 6.6. Hemoglobin 13.8. HCG not detected. Reports recent admission for pancreatitis about 2 months ago as well as in February. Denies alcoholism. No changes in medications. Review of Systems Constitutional: Denies fever, chills, sweats, weight gain, or loss. HEENT: Negative for migraines, blurred vision or loss, earaches, drainage, tinnitus, oral mucosal lesions, dysphagia, or odynophagia. CARDIAC: Negative for chest pain, arrhythmias, or palpitation. RESPIRATORY: Negative for shortness of breath, hemoptysis, cough, or sputum production. GI: See HPI for pertinent findings. : Negative for hematuria, urgency, frequency, polyuria, or dysuria. GYNc: Denies possibility of . Negative vaginal discharge. MUSCULOSKELETAL: Fibromyalgia. Rheumatoid arthritis. Seizure disorder.. NEUROLOGIC: Negative for stroke or TIA. ENDOCRINE: Hypothyroidism.. SKIN: Negative for rash or itching. PSYCHIATRIC: ADHD. Anxiety. Bipolar depression. Claustrophobia. Past Medical History Past Medical History: Fibromyalgia, GERD/Reflux, Neurologic Disorder, Rheumatoid Arthritis (RA), Seizure Disorder, Thyroid Disorder Additional Past Medical History / Comment(s): Pt recently admitted to [facility] on with acute, severe strp pharyngitis/tonsillitis/ sepsis like picture. Other hx: HELP syndrome 2013, pancreatitis, seizure from taking ultram couple years ago. History of Any Multi-Drug Resistant Organisms: None Reported Past Surgical History: No Surgical Hx Reported Additional Past Surgical History / Comment(s): [facility] found per pt, D&C. Past Anesthesia/Blood Transfusion Reactions: No Reported Reaction Additional Past Anesthesia/Blood Transfusion Reaction / Comm: clausterphobia Past Psychological History: ADD/ADHD, Anxiety, Bipolar, Depression Additional Psychological History / Comment(s): Pt denies past suicide attempts, however, previous medical records indicate that pt has attempted suicide with overdosing. Pt states she is not thinking of suicide and does not have suicide plans at this time. Pt lives with her parents. She is independent. Smoking Status: Current every day smoker Past Alcohol Use History: Occasional, Rare Additional Past Alcohol Use History / Comment(s): Smokes 1-2 PPD x 19 yrs.smoking cessation booklet given to pt. Past Drug Use History: Cocaine, Methamphetamine, Opiates Additional Drug Use History / Comment(s): Pt states she was told in ER today that her urine was positive for drugs but she has no recollection of taking any drugs. - Past Family History Mother Family Medical History: Osteoarthritis (OA) Additional Family Medical History / Comment(s): carpal tunnel Father Family Medical History: Coronary Artery Disease (CAD), Hyperlipidemia, Hypertension, Osteoarthritis (OA) Additional Family Medical History / Comment(s): cabg Medications and Allergies Home Medications Medication Instructions Recorded Confirmed Type Ranitidine HCl [Zantac] 75 mg PO BID 05/10/16 06/21/16 History Ergocalciferol [Vitamin D2] 50,000 unit PO FR 06/21/16 06/21/16 History Magnesium 200 mg PO HS 06/21/16 06/21/16 History Allergies Allergy/AdvReac Type Severity Reaction Status Date / Time ciprofloxacin [From Cipro] Allergy Rash/Hives Verified 06/21/16 08:23 codeine Allergy Rash/Hives Verified 06/21/16 08:23 Penicillins Allergy Unknown Verified 06/21/16 08:23 Childhood tramadol [From Ultram] Allergy Unknown Verified 06/21/16 08:23 tramadol HCl [From Ultram] Allergy seizures Verified 06/21/16 08:23 ibuprofen AdvReac Abdominal Verified 06/21/16 08:23 Pain Physical Exam Vitals: Vital Signs Temp Pulse Pulse Resp BP Pulse Ox 06/22/16 07:00 97 F L 54 L 17 117/72 100 06/21/16 23:00 97.8 F 94 20 119/86 98 06/21/16 15:00 98 F 97 20 119/67 96 Intake and Output 06/21/16 06/22/16 06/22/16 22:59 06:59 14:59 Intake Total 0 0 Balance 0 0 Intake: Oral 0 0 Other: # Voids 2 General appearance: The patient is alert, oriented, in no acute distress. HET: Head is normocephalic and atraumatic. Pupils are equal and reactive. Oropharynx is clear without lesions. Neck: Supple without lymphadenopathy. Trachea midline. Heart: S1 S2. Regular rate and rhythm. Lungs: No crackles or wheezes are heard. Abdomen: Soft, mild midepigastric tenderness, nondistended with bowel sounds. No peritoneal signs. No palpable organomegaly or masses. Extremities: Normal skin color and turgor. No cyanosis, rash, ulceration, clubbing, or edema. Radial and pedal pulses are 2/4 bilaterally. Neurological: No focal deficits. Strength and sensation are grossly intact. Results CBC & Chem 7: 06/22/16 08:40 06/21/16 08:15 Labs: Abnormal Lab Results - Last 24 Hours (Table) 06/21/16 Range/Units 15:31 POC Glucose (mg/dL) 170 H (75-99) mg/dL Assessment and Plan (1) Chronic pancreatitis Narrative/Plan: History of chronic idiopathic pancreatitis with extensive workup at [facility]. Etiology of pancreatitis could be drug-induced with urinalysis indicating polysubstance abuse including methamphetamines and cocaine. Cannot exclude underlying cirrhosis with recent episode of pancreatitis 2 and 4 months ago Status: Acute Plan: 1. Ultrasound abdomen rule out pseudocyst. 2. Nothing by mouth except medications ice chips if pancreatic enzymes are improved, advanced to clear liquid diet with slow advancement. 3. We'll follow with you. Thank you for this kind referral and the opportunity to participate in the care of your patient. This consultation was discussed with Dr. Paige. The impression and plan of care have been directed as dictated.
--- NOTE | 2016-06-22 14:24 | US ---
EXAMINATION TYPE: US abdomen limited DATE OF EXAM: 06/22/2016 2:01 PM COMPARISON: NONE CLINICAL HISTORY: pancreatits r/o pseudocyst. EXAM MEASUREMENTS: Liver Length: 14.2 cm Gallbladder Wall: 0.2 cm CBD: 0.5 cm Right Kidney: 10.2 x 4.1 x 6.0 cm No pseudocyst seen Pancreas: Pancreatic duct is visualized but appears within normal limits for measurement. Liver: wnl Gallbladder: No stones seen Evidence for sonographic Fields's sign: No CBD: wnl Right Kidney: No hydronephrosis or masses seen IMPRESSION: 1. No pseudocyst formation evident. 2. Abdomen ultrasound as visualized otherwise appears normal.
--- NOTE | 2016-06-22 16:08 | P.CN ---
Psychiatric Consult - . Consult date: 06/22/16 Consult:: IDENTIFYING DATA: She is a 31-year-old single female admitted to medicine service with complaints of abdominal pain radiating to her back. Her history is significant for pancreatitis. Medicine service consulted psychiatry because he urine drug screen was positive for several drugs of abuse. HISTORY OF PRESENT ILLNESS: I reviewed the medical record and interviewed Mrs. Guardado. She was not a reliable historian and I do not have confidence in the information she provided. She was pain focused. She alleged that she stopped drinking alcohol 1 month ago. She denied use of drugs including marijuana. Specifically she denied using opiates, barbiturates, methamphetamine or cocaine. She was unable to explain the results of urine drug screen. She complained of feeling depressed and hopeless because of her multiple hospitalizations and continued pain. She alleged that she does not have adequate pain control because her primary care provider will not prescribe her narcotic pain medications. She denied having thoughts of or suicide. She denied a history of suicide attempts or suicidal gestures. However, the admission history indicates a past suicide attempt by overdose. She described feelings depression including punishment feelings, crying, worthlessness, tiredness or fatigue. She described a generalized sense of anxiety present throughout the day that is excessive at times contributes to feelings of fatigue , restlessness and impaired concentration. She related her anxiety and depression to her pain and discomfort. She alleged that she has had periods where she had decreased need for sleep not associated with sustained irritability or euphoria. She denied obsessions or compulsions. She denied she denied periods of increased anxiety consistent with a panic attack. She denied psychotic symptoms such as auditory or visual hallucinations, ideas reference, thought insertion, thought broadcasting or thought control. PAST PSYCHIATRIC HISTORY: She gave ambivalent answers about her past history of mental health treatment. At one point during interview she denied that she had history of mental illness but later alleged that "a doctor" diagnosed her with bipolar disorder when she was young. She denied receiving mental health treatment but met with a "counselor" last summer. She does not remember the counselor's name or the name of the mental health clinic. She denied inpatient mental health treatment. PAST MEDICAL HISTORY: According to record she has history of fibromyalgia, GERD , rheumatoid arthritis, seizure disorder, thyroid disorder and a neurological disorder.. ALLERGIES: [No known drug allergies]. SUBSTANCE USE HISTORY: She was guarded and evasive about her history of substance use. She admitted to drinking alcohol;at one point drinking alcohol on a daily basis. She minimizes the amount of alcohol she use alleged she drank "2 or 3 beers" or "a couple shots". She denied use of drugs with the exception of prescribed opiate pain medications. She denied that she has been in residential rehabilitation. She does not attend AA or NA. SOCIAL HISTORY: She is single and lives with her mother. She may or may not currently be employed. At one point she stated that she is unemployed and later stated that she recently found a job. MENTAL STATUS EXAM: She presented as a disheveled appearing 31-year-old female who is laying in bed. She did not appear to be in acute distress. She made eye contact and appeared to attend to interview. She had no distinguishing features or prominent physical abnormalities. She had a blunted facial expression. She is alert and oriented to person, place and time. Her speech was not spontaneous. She had no articulation difficulties. Her affect was blunted but stable and appropriate. She denied suicidal ideation or wishes. She denied homicidal ideation. She expressed some depressive cognitions such as hopelessness but denied worthlessness or helplessness. She ruminated about her pain and lack of treatment of her pain. She did not express phobias, ideas reference or paranoid ideation. Her thinking was concrete but her associations were coherent and logical. She denied hallucinations and did not appear to be responding to internal stimuli.. IMPRESSIONS: She is a 31-year-old woman admitted to the hospital with acute pancreatitis. He urine drug screen was positive for opiates, barbiturates, methamphetamine and cocaine. However, she denied use of these drugs. She alleged that she has not used alcohol in the last month. She was guarded and evasive. I do not believe that she was forthright about her history of drug or alcohol use. She is pain focused and attributes her depression, hopelessness and anxiety to lack of adequate treatment of her pain complaints. There is no indication for inpatient psychiatric hospitalization at this time. She would benefit from outpatient dual diagnosis treatment. PLAN: Refer her to [facility] for dual diagnosis treatment.. 06/22/16 15:52
[2016-06-22 19:02] LABS: Glucose,Whole Blood 229 mg/dL (75-99)
--- NOTE | 2016-06-22 19:22 | P.PN ---
Subjective Principal diagnosis: Acute pancreatitis Patient is a 31-year-old female presenting with a chief complaint of abdominal pain, amylase and lipase elevated suggestive of acute pancreatitis Also toxicology screen positive for multiply substances Gastroenterology and psychiatry consultation has been initiated Clinically patient is improving was less pain in the abdomen Amylase and lipase has improved since yesterday Objective - Vital Signs Vital signs: Vital Signs Temp 98.7 F 06/22/16 15:00 Pulse 99 06/22/16 15:00 Resp 19 06/22/16 15:00 BP 113/68 06/22/16 15:00 Pulse Ox 98 06/22/16 15:00 Intake & Output 06/22/16 06/22/16 06/23/16 06:59 18:59 06:59 Intake Total 0 Balance 0 Intake: Oral 0 Other: # Voids 2 2 - Exam HEENT head normocephalic and atraumatic Neck is supple no JVD no goiter no lymphadenopathy Chest exam reveals a few scattered rhonchi no wheezing Cardiac exam reveals a regular heart sounds S1 and S2 no gallops no murmurs Abdomen is soft with tenderness in the epigastric area no organomegaly normal bowel sounds Extremity exam reveals no edema no cyanosis or clubbing - Labs CBC & Chem 7: 06/22/16 08:40 06/22/16 08:40 Labs: Abnormal Lab Results - Last 24 Hours (Table) 06/22/16 06/22/16 Range/Units 08:40 18:58 Chloride 108 H (98-107) mmol/L Carbon Dioxide 19 L (22-30) mmol/L BUN 4 L (7-17) mg/dL Creatinine 0.48 L (0.52-1.04) mg/dL Glucose 72 L (74-99) mg/dL POC Glucose (mg/dL) 229 H (75-99) mg/dL Amylase 207 H (30-110) U/L Lipase 1325 H (23-300) U/L Assessment and Plan Plan: #1 acute pancreatitis #2 recurrent episodes of pancreatitis #3 possible alcohol use #4 possible drug use At this time continue with nothing by mouth continue with IV fluid Continue was pain management Consultation for gastroenterology was initiated Will also consult psychiatry for possible polysubstance abuse Will follow in a.m.
[2016-06-23] MEDS: ALPRAZolam 0.25 MG TAB PO PRN ×4 (01:12→20:54)
[2016-06-23] MEDS: HYDROmorphone 1 MG/ML 1 ML SYRINGE IVP PRN ×6 (01:12→20:54)
[2016-06-23] MEDS: SODIUM CHLORIDE 0.9% 1,000 ML IV SCH ×3 (03:21→17:10)
[2016-06-23] MEDS: ONDANSETRON 4 MG/2 ML VIAL IVP PRN ×2 (03:22→15:03)
[2016-06-23 09:14] LABS: Aty Lym Flag Slight; CH 31.7; CHCM 33.5; HCT 39.2 % (34.0-46.0); HDW 2.27; MCH 31.5 pg (25.0-35.0); MCHC 33.1 g/dL (31.0-37.0); Mean Platelet Volume 6.6; RBC 4.12 m/uL (3.80-5.40); RDW 12.9 % (11.5-15.5); WBC 6.3 k/uL (3.8-10.6); WBC (Perox) 6.61
[2016-06-23 09:36] LABS: ALT 24 U/L (9-52); AST 15 U/L (14-36); Alkaline Phosphatase 48 U/L (38-126); Anion Gap 9 mmol/L; Blood Urea Nitrogen 4 mg/dL (7-17); Carbon Dioxide 24 mmol/L (22-30); Chloride 108 mmol/L (98-107); Glucose 101 mg/dL (74-99); Non-African American GFR(MDRD) >60 (>60 ml/min/1.73 sqM); Potassium 3.7 mmol/L (3.5-5.1); Sodium 141 mmol/L (137-145); Total Bilirubin 0.4 mg/dL (0.2-1.3); Total Protein 6.4 g/dL (6.3-8.2)
[2016-06-23 11:10] LABS: Add Differential Manual Differential
[2016-06-23 11:13] LABS: Manual Review Performed; Nucleated Red Blood Cells 0 /100 WBC (0-0); RBC Morphology Normal; Total Cells Counted 100
--- NOTE | 2016-06-23 11:49 | P.PN ---
Subjective Principal diagnosis: Recurrent pancreatitis 31-year-old female with a history of chronic relapsing idiopathic pancreatitis admitted with polysubstance urine screen including cocaine. Still reports abdominal pain. Lipase slowly improving. Clear liquids started yesterday unable to advance placed on nothing by mouth secondary to pain. Ultrasound abdomen reported no evidence of pseudocyst. Objective - Vital Signs Vital signs: Vital Signs Temp 97.7 F 06/23/16 07:00 Pulse 97 06/23/16 08:00 Resp 16 06/23/16 08:00 BP 105/61 06/23/16 07:00 Pulse Ox 97 06/23/16 07:00 Intake & Output 06/22/16 06/23/16 06/23/16 18:59 06:59 18:59 Intake Total 0 Balance 0 Intake: Oral 0 Other: # Voids 2 2 - Exam General appearance: The patient is alert, oriented, in no acute distress. HET: Head is normocephalic and atraumatic. Pupils are equal and reactive. Oropharynx is clear without lesions. Neck: Supple without lymphadenopathy. Trachea midline. Heart: S1 S2. Regular rate and rhythm. Lungs: No crackles or wheezes are heard. Abdomen: Soft, midepigastric tenderness, nondistended with bowel sounds. No peritoneal signs. No palpable organomegaly or masses. Extremities: Normal skin color and turgor. No cyanosis, rash, ulceration, clubbing, or edema. Radial and pedal pulses are 2/4 bilaterally. Neurological: No focal deficits. Strength and sensation are grossly intact. - Labs CBC & Chem 7: 06/23/16 08:53 06/23/16 08:53 Labs: Abnormal Lab Results - Last 24 Hours (Table) 06/22/16 06/23/16 Range/Units 18:58 08:53 Chloride 108 H (98-107) mmol/L BUN 4 L (7-17) mg/dL Glucose 101 H (74-99) mg/dL POC Glucose (mg/dL) 229 H (75-99) mg/dL Lipase 1274 H (23-300) U/L Assessment and Plan (1) Chronic pancreatitis Narrative/Plan: History of chronic idiopathic pancreatitis with extensive workup at [facility]. Etiology of pancreatitis could be drug-induced with urinalysis indicating polysubstance abuse including methamphetamines and cocaine. Cannot exclude underlying cirrhosis with recent episode of pancreatitis 2 and 4 months ago Status: Acute Plan: 1. Supportive measures. Advance diet as tolerated. 2. We'll continue to follow. Assessment and plan a care discussed with Dr. Paige.
[2016-06-23 16:11] LABS: Hemoglobin A1C 5.6 % (4.2-6.1)
--- NOTE | 2016-06-23 17:10 | P.PN ---
Subjective Principal diagnosis: Acute pancreatitis Patient is a 31-year-old female presenting with a chief complaint of abdominal pain, amylase and lipase elevated suggestive of acute pancreatitis Also toxicology screen positive for multiply substances Gastroenterology and psychiatry consultation has been initiated Clinically patient is improving was less pain in the abdomen Amylase and lipase has improved since yesterday Objective - Vital Signs Vital signs: Vital Signs Temp 97.7 F 06/23/16 15:00 Pulse 97 06/23/16 15:16 Resp 16 06/23/16 15:16 BP 139/86 06/23/16 15:00 Pulse Ox 97 06/23/16 15:00 Intake & Output 06/22/16 06/23/16 06/23/16 18:59 06:59 18:59 Intake Total 0 1000 Balance 0 1000 Intake: IV 1000 Sodium Chloride 0.9% 1, 1000 000 ml @ 125 mls/hr IV . Q8H TAIWO Rx#:[id number] Oral 0 Other: # Voids 2 2 1 - Exam HEENT head normocephalic and atraumatic Neck is supple no JVD no goiter no lymphadenopathy Chest exam reveals a few scattered rhonchi no wheezing Cardiac exam reveals a regular heart sounds S1 and S2 no gallops no murmurs Abdomen is soft with tenderness in the epigastric area no organomegaly normal bowel sounds Extremity exam reveals no edema no cyanosis or clubbing - Labs CBC & Chem 7: 06/23/16 08:53 06/23/16 08:53 Labs: Abnormal Lab Results - Last 24 Hours (Table) 06/22/16 06/23/16 Range/Units 18:58 08:53 Chloride 108 H (98-107) mmol/L BUN 4 L (7-17) mg/dL Glucose 101 H (74-99) mg/dL POC Glucose (mg/dL) 229 H (75-99) mg/dL Lipase 1274 H (23-300) U/L Assessment and Plan Plan: #1 acute pancreatitis #2 recurrent episodes of pancreatitis #3 possible alcohol use #4 possible drug use At this time continue with nothing by mouth continue with IV fluid Continue was pain management Consultation for gastroenterology was initiated Will also consult psychiatry for possible polysubstance abuse Will follow in a.m.
[2016-06-24] MEDS: HYDROmorphone 1 MG/ML 1 ML SYRINGE IVP PRN ×6 (00:51→20:51)
[2016-06-24] MEDS: SODIUM CHLORIDE 0.9% 1,000 ML IV SCH ×3 (00:54→16:51)
[2016-06-24] MEDS: ALPRAZolam 0.25 MG TAB PO PRN ×4 (02:57→20:50)
--- NOTE | 2016-06-24 09:44 | P.PN ---
Subjective Principal diagnosis: Recurrent pancreatitis 31-year-old female with a history of chronic relapsing idiopathic pancreatitis admitted with polysubstance urine screen including cocaine. Still reports abdominal pain but improved. Tolerating full liquid diet. Afebrile. Objective - Vital Signs Vital signs: Vital Signs Temp 97.0 F L 06/24/16 07:00 Pulse 82 06/24/16 07:00 Resp 16 06/24/16 07:00 BP 125/85 06/24/16 07:00 Pulse Ox 97 06/24/16 07:00 Intake & Output 06/23/16 06/24/16 06/24/16 18:59 06:59 18:59 Intake Total 1000 340 Balance 1000 340 Intake: IV 1000 Sodium Chloride 0.9% 1, 1000 000 ml @ 125 mls/hr IV . Q8H TAIWO Rx#:[id number] Oral 340 Other: # Voids 1 1 - Exam General appearance: The patient is alert, oriented, in no acute distress. HET: Head is normocephalic and atraumatic. Pupils are equal and reactive. Oropharynx is clear without lesions. Neck: Supple without lymphadenopathy. Trachea midline. Heart: S1 S2. Regular rate and rhythm. Lungs: No crackles or wheezes are heard. Abdomen: Soft, midepigastric tenderness, nondistended with bowel sounds. No peritoneal signs. No palpable organomegaly or masses. Extremities: Normal skin color and turgor. No cyanosis, rash, ulceration, clubbing, or edema. Radial and pedal pulses are 2/4 bilaterally. Neurological: No focal deficits. Strength and sensation are grossly intact. - Labs CBC & Chem 7: 06/23/16 08:53 06/23/16 08:53 Labs: Abnormal Lab Results - Last 24 Hours (Table) 06/23/16 Range/Units 08:53 Chloride 108 H (98-107) mmol/L BUN 4 L (7-17) mg/dL Glucose 101 H (74-99) mg/dL Lipase 1274 H (23-300) U/L Assessment and Plan (1) Chronic pancreatitis Narrative/Plan: History of chronic idiopathic pancreatitis with extensive workup at [facility]. Etiology of pancreatitis could be drug-induced with urinalysis indicating polysubstance abuse including methamphetamines and cocaine. Cannot exclude underlying cirrhosis with recent episode of pancreatitis 2 and 4 months ago Status: Acute Plan: 1. Supportive measures. Advance diet as tolerated. 2. Discharge per medicine. We'll follow as needed. Assessment and plan a care discussed with Dr. Paige.
--- NOTE | 2016-06-24 13:40 | P.PN ---
Subjective Principal diagnosis: Acute pancreatitis Patient is a 31-year-old female presenting with a chief complaint of abdominal pain, amylase and lipase elevated suggestive of acute pancreatitis Also toxicology screen positive for multiply substances Gastroenterology and psychiatry consultation has been initiated Clinically patient is improving was less pain in the abdomen Amylase and lipase has improved since yesterday Objective - Vital Signs Vital signs: Vital Signs Temp 97.0 F L 06/24/16 07:00 Pulse 82 06/24/16 07:00 Resp 16 06/24/16 07:00 BP 125/85 06/24/16 07:00 Pulse Ox 97 06/24/16 07:00 Intake & Output 06/23/16 06/24/16 06/24/16 18:59 06:59 18:59 Intake Total 1000 340 365 Balance 1000 340 365 Intake: IV 1000 Sodium Chloride 0.9% 1, 1000 000 ml @ 125 mls/hr IV . Q8H TAIWO Rx#:[id number] Oral 340 365 Other: # Voids 1 1 - Exam HEENT head normocephalic and atraumatic Neck is supple no JVD no goiter no lymphadenopathy Chest exam reveals a few scattered rhonchi no wheezing Cardiac exam reveals a regular heart sounds S1 and S2 no gallops no murmurs Abdomen is soft with tenderness in the epigastric area no organomegaly normal bowel sounds Extremity exam reveals no edema no cyanosis or clubbing - Labs CBC & Chem 7: 06/23/16 08:53 06/23/16 08:53 Assessment and Plan Plan: #1 acute pancreatitis #2 recurrent episodes of pancreatitis #3 possible alcohol use #4 possible drug use At this time advance diet gradually Recheck labs in a.m. Continue was pain management Consultation for gastroenterology was initiated Will also consult psychiatry for possible polysubstance abuse Will follow in a.m. Possible discharge in the next 1-2 days
[2016-06-25] MEDS: HYDROmorphone 1 MG/ML 1 ML SYRINGE IVP PRN ×4 (00:42→12:06)
[2016-06-25] MEDS: SODIUM CHLORIDE 0.9% 1,000 ML IV SCH ×2 (03:19→08:19)
[2016-06-25] MEDS: ALPRAZolam 0.25 MG TAB PO PRN ×2 (03:19→08:17)
[2016-06-25 08:26] VITALS: BP 116/71; PULSE 80; RESP 18; TEMP 97.2
[2016-06-25 09:29] LABS: ALT 21 U/L (9-52); AST 20 U/L (14-36); Alkaline Phosphatase 45 U/L (38-126); Anion Gap 8 mmol/L; Blood Urea Nitrogen 8 mg/dL (7-17); Calcium 9.6 mg/dL (8.4-10.2); Carbon Dioxide 28 mmol/L (22-30); Chloride 104 mmol/L (98-107); Glucose 77 mg/dL (74-99); Non-African American GFR(MDRD) >60 (>60 ml/min/1.73 sqM); Potassium 4.5 mmol/L (3.5-5.1); Sodium 140 mmol/L (137-145); Total Bilirubin 0.4 mg/dL (0.2-1.3)
[2016-06-25 10:05] LABS: Basophils # (A) 0.1 k/uL (0-0.2); Basophils % (A) 2 %; CH 32.3; CHCM 33.2; Eosinophils # (A) 0.4 k/uL (0-0.7); Eosinophils % (A) 5 %; HCT 41.5 % (34.0-46.0); HDW 2.24; HGB 13.9 gm/dL (11.4-16.0); Luc # (Auto) 0.31; Luc % (Auto) 4; Lymphocytes # (A) 3.6 k/uL (1.0-4.8); Lymphocytes % (A) 45 %; MCH 32.8 pg (25.0-35.0); MCHC 33.6 g/dL (31.0-37.0); MCV 97.5 fL (80.0-100.0); Mean Platelet Volume 7.1; Monocytes # (A) 0.5 k/uL (0-1.0); Monocytes % (A) 7 %; Neutrophils # (A) 2.9 k/uL (1.3-7.7); Neutrophils % (A) 37 %; RBC 4.25 m/uL (3.80-5.40); RDW 13.1 % (11.5-15.5); WBC 7.9 k/uL (3.8-10.6); WBC (Perox) 8.13
--- NOTE | 2016-06-25 14:24 | P.DS ---
Providers Date of admission: 06/21/16 09:58 Expected date of discharge: 06/25/16 Attending physician: Reji Finch Consults: 06/21/16 17:59 Consult Physician Routine Consulting Provider: Jon Carbajal Consult Reason/Comments: polysubstance abuse Do you want consulting provider notified?: Yes 06/23/16 13:39 Consult Anesthesia Routine Consulting Provider: Anesthesia,Services Consult Reason/Comments: pain control Primary care physician: Miley Rodriguez [facility] Course: Patient is being seen by me today for the first time. I'm covering for Dr. Finch. Patient is been in the hospital for approximately 5 days. This is a 31-year-old female with past medical history significant for polysubstance abuse including opiates, amphetamine, and cocaine. Patient presented to the hospital with worsening abdominal pain and was found to have acute pancreatitis. She was seen and evaluated by gastroenterology. Apparently she was previously evaluated at the [facility] for idiopathic recurrent pancreatitis. Her ultrasound during this admission showed no acute findings. She was counseled extensively about substance abuse. She was seen by psychiatry and was referred to [facility] for further evaluation. On the day of discharge, patient was able to tolerate regular diet with no difficulty. She will be discharged home in a stable condition. She was counseled extensively about substance abuse. She will follow-up with her primary care physician as directed. Patient Condition at Discharge: Fair Plan - Discharge Summary Discharge Medication List Ranitidine HCl [Zantac] 75 mg PO BID 05/10/16 [History] Ergocalciferol [Vitamin D2] 50,000 unit PO FR 06/21/16 [History] Magnesium 200 mg PO HS 06/21/16 [History] Follow up Appointment(s)/Referral(s): Miley Rodriguez MD [Primary Care Provider] - 1-2 days Discharge Disposition: HOME SELF-CARE
== END 2016-06-25 14:44 | disposition home or self-care (01) | DRG 440 ==
LOC: EC 07:54 → 4MS4W 09:58
PROVIDERS: ADMIT Internal Medicine; ATTEND Internal Medicine
DX: K85.90 Acute pancreatitis without necrosis or infection, unspecified (principal); F17.200 Nicotine dependence, unspecified, uncomplicated; K21.9 Gastro-esophageal reflux disease without esophagitis; G89.29 Other chronic pain; K86.1 Other chronic pancreatitis; Z88.1 Allergy status to other antibiotic agents; Z88.5 Allergy status to narcotic agent; Z88.0 Allergy status to penicillin; Z82.49 Family history of ischemic heart disease and other diseases of the circulatory system
CPT/HCPCS: 36415; 76705; 80053; 80306; 80320; 81001; 81025; 82150; 83036; 83690; 85025; 93005; 96361; 96374; 96375; 99285

== ENCOUNTER 2016-09-03 19:06 | Emergency (ER) | payer OTHER ==
[2016-09-03 19:21] VITALS: RESP 18
[2016-09-03] MEDS ORDERED: RX INFO: IV CONTRAST WAS GIVEN 1 EACH MISC MISCELLANE PRN (19:26)
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
[2016-09-03] MEDS ORDERED: MORPHINE SULFATE 4 MG/ML SYRINGE IVP STA (20:02)
[2016-09-03 20:05] LABS: Basophils # (A) 0.1 k/uL (0-0.2); Basophils % (A) 1 %; CH 32.9; CHCM 34.1; Eosinophils # (A) 0.4 k/uL (0-0.7); Eosinophils % (A) 3 %; HCT 46.1 % (34.0-46.0); HDW 2.09; HGB 15.3 gm/dL (11.4-16.0); Luc # (Auto) 0.23; Luc % (Auto) 2; Lymphocytes % (A) 22 %; MCH 32.1 pg (25.0-35.0); MCHC 33.1 g/dL (31.0-37.0); MCV 97.1 fL (80.0-100.0); Mean Platelet Volume 6.6; Monocytes # (A) 0.6 k/uL (0-1.0); Monocytes % (A) 5 %; Neutrophils # (A) 8.9 k/uL (1.3-7.7); Neutrophils % (A) 67 %; RBC 4.75 m/uL (3.80-5.40); RDW 13.1 % (11.5-15.5); WBC 13.3 k/uL (3.8-10.6); WBC (Perox) 12.24
[2016-09-03 20:16] LABS: ALT 31 U/L (9-52); AST 36 U/L (14-36); Alcohol <10 mg/dL; Alkaline Phosphatase 59 U/L (38-126); Anion Gap 10 mmol/L; Blood Urea Nitrogen 10 mg/dL (7-17); Calcium 9.5 mg/dL (8.4-10.2); Carbon Dioxide 24 mmol/L (22-30); Chloride 106 mmol/L (98-107); Glucose 80 mg/dL (74-99); Non-African American GFR(MDRD) >60 (>60 ml/min/1.73 sqM); Potassium 4.2 mmol/L (3.5-5.1); Sodium 140 mmol/L (137-145); Total Bilirubin 0.8 mg/dL (0.2-1.3); Total Protein 7.8 g/dL (6.3-8.2)
[2016-09-03 20:22] LABS: INR 1.1 (<1.1); Prothrombin Time 10.9 sec (9.0-12.0)
[2016-09-03 20:23] LABS: Amorphous Sediment,Urine Rare /hpf; Appearance,Urine Cloudy (Clear); Bacteria,Urine Rare /hpf; Bilirubin,Urine Negative (Negative); Glucose,Urine (UA) Negative (Negative); Ketones,Urine Negative (Negative); Leukocyte Esterase,Urine Trace (Negative); Mucus,Urine Few /hpf; Nitrite,Urine Negative (Negative); Particle Count 9992; Protein,Urine Trace (Negative); RBC,Urine 2 /hpf (0-5); Specific Gravity,Urine 1.018 (1.001-1.035); Squamous Epithelial Cell,Urine 47 /hpf (0-4); UA Billing (MACRO vs. MICRO) MICRO; Urobilinogen,Urine <2.0 mg/dL (<2.0); WBC,Urine 7 /hpf (0-5)
[2016-09-03 20:25] LABS: Creatine Kinase 67 U/L (30-135)
[2016-09-03 20:38] LABS: Troponin I <0.012 ng/mL (0.000-0.034)
[2016-09-03 20:41] LABS: Partial Thromboplastin Time 20.7 sec (22.0-30.0)
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
[2016-09-03 22:08] VITALS: BP 115/76; PULSE 110; TEMP 98
== END 2016-09-03 22:06 | disposition home or self-care (01) ==
LOC: EC 19:06
DX: S20.219A Contusion of unspecified front wall of thorax, initial encounter (principal); R10.13 Epigastric pain; F17.200 Nicotine dependence, unspecified, uncomplicated; Z88.0 Allergy status to penicillin; Z88.1 Allergy status to other antibiotic agents; Z88.5 Allergy status to narcotic agent; Z88.6 Allergy status to analgesic agent; V48.5XXA Car driver injured in noncollision transport accident in traffic accident, initial encounter; Y92.410 Unspecified street and highway as the place of occurrence of the external cause
CPT/HCPCS: 36415; 93005; 86900; 86901; 80053; 82550; 82553; 84484; 85025; 85610; 85730; 86850; 81001; 80306; 80320; 71260; 74177; 99285; 96374; J2270; Q9967

== ENCOUNTER → 2017-09-28 | Outpatient (CLI) | payer OTHER | LOC: RADUSWWP 11:15 | PROVIDERS: ATTEND Obstetrics & Gynecology | DX: Z53.9 Procedure and treatment not carried out, unspecified reason (principal) ==

== ENCOUNTER → 2018-05-24 | Outpatient (CLI) | payer OTHER ==
--- NOTE | 2018-05-24 11:51 | XR ---
EXAMINATION TYPE: XR thoracic spine 2V DATE OF EXAM: 05/24/2018 CLINICAL HISTORY: Chronic pain. TECHNIQUE: Frontal, lateral, and swimmer's view of thoracic spine are obtained. COMPARISON: Thoracic spine x-ray September 28, 2015. FINDINGS: Thoracic spine redemonstrates slight levoconvex scoliotic curvature centered in the lower t horacic spine without evidence of acute fracture or dislocation. Vertebral body heights and disc spa ce heights are stable and satisfactory. No significant spurring is present. Visualized ribs are unrem arkable bilaterally. IMPRESSION: As above, no significant change from 2016 study.
--- NOTE | 2018-05-24 11:54 | XR ---
EXAMINATION TYPE: XR lumbosacral spine min 4V DATE OF EXAM: 05/24/2018 CLINICAL HISTORY: Chronic pain. TECHNIQUE: Frontal, lateral, and oblique images of the lumbar spine are obtained. COMPARISON: CT chest abdomen and pelvis September 03, 2016 FINDINGS: There are 5 lumbar type vertebral bodies redemonstrated. The lumbar spine shows satisfact ory alignment without evidence of acute fracture or dislocation. Moderate to severe disc space narrow ing with endplate sclerosis L5-S1 level is redemonstrated. Vertebral body heights and disk space heig hts otherwise are within normal limits. The oblique images appear within normal limits. There are n ew faint calcifications upper to mid abdomen centrally suspected pancreatic in origin confirmed on mu ltiple projections. IMPRESSION: Stable moderate to severe disc space narrowing L5-S1 level. Suspect new pancreatic calcif ications presumed product of chronic pancreatitis, correlate clinically.
--- NOTE | 2018-05-24 11:58 | XR ---
EXAMINATION TYPE: XR cervical spine comp DATE OF EXAM: 05/24/2018 TECHNIQUE: Frontal, lateral, oblique, and open mouth view of the cervical spine are obtained. HISTORY: M54.2, M54.6, M54.5, Z87.39 COMPARISON: X-ray and CT from 2013. FINDINGS: The cervical spine is visualized in its entirety from C1 thru the top of T1 level, it is s atisfactory in alignment without evidence of acute fracture or dislocation. The pre-vertebral soft t issue appears within normal limits. The C1-C2 articulation is within normal limits on the open mouth view. Vertebral body heights are maintained. There is stable mild disc space narrowing C5-C6 level. There is more prominent mild to moderate disc space narrowing C6-C7 level seen since 2013 studies. T he oblique images are within normal limits. Overlying soft tissue is unremarkable. IMPRESSION: Increasing degenerative change C6-C7 level noted.
== END ==
LOC: RADXRMAIN 08:41
PROVIDERS: ATTEND Family Medicine
DX: M48.07 Spinal stenosis, lumbosacral region (principal); M47.812 Spondylosis without myelopathy or radiculopathy, cervical region; M41.84 Other forms of scoliosis, thoracic region; M54.6 Pain in thoracic spine; G89.29 Other chronic pain
CPT/HCPCS: 72050; 72070; 72110

== ENCOUNTER → 2020-08-11 | Outpatient (CLI) | payer OTHER ==
[2020-08-11 11:42] LABS: Basophils # (A) 0.1 k/uL (0-0.2); Basophils % (A) 1 %; Eosinophils # (A) 0.7 k/uL (0-0.7); Eosinophils % (A) 10 %; HCT 42.2 % (34.0-46.0); HGB 14.4 gm/dL (11.4-16.0); Lymphocytes # (A) 2.4 k/uL (1.0-4.8); Lymphocytes % (A) 32 %; MCH 31.9 pg (25.0-35.0); MCHC 34.1 g/dL (31.0-37.0); MCV 93.6 fL (80.0-100.0); Mean Platelet Volume 6.7; Monocytes # (A) 0.4 k/uL (0-1.0); Monocytes % (A) 6 %; Neutrophils # (A) 3.5 k/uL (1.3-7.7); Neutrophils % (A) 48 %; Platelet Count 289 k/uL (150-450); RBC 4.51 m/uL (3.80-5.40); RDW 12.5 % (11.5-15.5); WBC 7.3 k/uL (3.8-10.6)
[2020-08-11 11:51] LABS: Potassium 4.5 mmol/L (3.5-5.1)
== END | disposition home or self-care (01) ==
LOC: LABPAT 10:34
PROVIDERS: ATTEND Orthopaedic Surgery
DX: Z01.812 Encounter for preprocedural laboratory examination (principal); G56.01 Carpal tunnel syndrome, right upper limb
CPT/HCPCS: 36415; 80051; 85025

== ENCOUNTER 2020-09-04 11:52 | Day surgery (SDC) | payer OTHER ==
[2020-09-02 15:30] VITALS: BMI 29.2
--- NOTE | 2020-09-03 15:42 | HP ---
HISTORY AND PHYSICAL REASON FOR ADMISSION: Surgery scheduled for 09/04/2020 HISTORY OF PRESENT ILLNESS: Alessia Rodriges is a 35-year-old patient seen with symptomatic right carpal tunnel syndrome. We discussed options. She elected to proceed with decompression of right median nerve. Consent was obtained. PAST MEDICAL HISTORY: Anxiety. PAST SURGICAL HISTORY: Noncontributory. MEDICATIONS: Adderall. SOCIAL HISTORY: Smokes half pack of cigarettes a day. PHYSICAL EXAMINATION: Physical evaluation of her right hand reveals she has a positive carpal compression, positive carpal Tinel's causing numbness, tingling throughout the median nerve distribution. She has subjective numbness in the median distribution. No tenderness along the A1 william sites. There is a good radial pulse. She has good perfusion distally. RADIOGRAPHS: Radiographs of the right hand and wrist revealed some osteoarthritic changes. EMG of the upper extremity revealed carpal tunnel syndrome. IMPRESSION: Right carpal tunnel syndrome. PLAN: Decompression, right median nerve. MMODL / IJN: [id number] /
[~2020-09-04 11:52] MED LIST: DEXAMETHASONE SOD PHOSPHATE 4 MG/ML 1 ML VIAL IV ONE; HYDROmorphone 0.5 MG/0.5 ML SYRINGE IVP PRN; LACTATED RINGERS 1,000 ML IV SCH; LIDOCAINE 1% (10MG/ML) FOR IV START INTRADERMA PRN; MIDAZOLAM 2 MG/2 ML VIAL IV PRN; ONDANSETRON 4 MG/2 ML VIAL IVP ONE
[2020-09-04 12:18] VITALS: TEMP 97.8
[2020-09-04] MEDS ORDERED: LACTATED RINGERS 1,000 ML IV ONE (12:21)
[2020-09-04] MEDS ORDERED: fentaNYL (PF) 50 MCG/ML 2 ML AMP ONE (13:15)
[2020-09-04] MEDS ORDERED: PROPOFOL 10 MG/ML 20 ML VIAL IV ONE (13:15)
[2020-09-04] MEDS ORDERED: LIDOCAINE 1% INJ 10MG/ML (20 ML MDV) ONE (13:15)
[2020-09-04] MEDS ORDERED: MIDAZOLAM 2 MG/2 ML VIAL ONE (13:15)
[2020-09-04] MEDS ORDERED: BUPIVACAINE (PF) 0.25% 30 ML VIAL SQ ONE (13:27)
--- NOTE | 2020-09-04 13:47 | P.OP ---
Date of Procedure: 09/04/20 Preoperative Diagnosis: Right carpal tunnel syndrome Postoperative Diagnosis: Right carpal tunnel syndrome Procedure(s) Performed: Decompression right median nerve Anesthesia: MAC, local Surgeon: Shalom Buitrago Estimated Blood Loss (ml): 0 Pathology: none sent Condition: stable Disposition: PACU Indications for Procedure: 35-year-old patient seen with symptomatic right carpal tunnel syndrome. After options regarding treatment were discussed with her, she elected to proceed with decompression right median nerve. Operative Findings: see description of procedure Description of Procedure: Patient was taken to the operative suite. Patient received preoperative IV antibiotics. Patient underwent IV sedation by the department of anesthesia. A well-padded tourniquet was placed along the proximal right upper extremity. The right upper extremity was prepped and draped in the normal sterile orthopedic fashion. The proposed incision site was infiltrated with 10 mL quarter percent plain Marcaine. Once sufficient local analgesia was noted the extremity was elevated and tourniquet insufflated to 250. I made an incision beginning at distal volar wrist crease extending distally proximal 3 cm a with the fourth metacarpal sharply through skin. I dissected down to the transverse carpal ligament. I made a small incision through the transverse carpal ligament. I completed the release proximally and distally with blunt Metzenbaums. There was complete release of transverse carpal ligament and good decompression of the median nerve. With good hemostasis. The skin margins were proximal nylon suture. I applied sterile dressing. The tourniquet was released with immediate capillary refill of all digits noted. The patient was transferred to a bed and then recovery stable condition having tolerated procedure well.
[2020-09-04 14:04] VITALS: BP 105/61; PULSE 64; RESP 16
== END 2020-09-04 14:27 | disposition home or self-care (01) ==
LOC: OR 11:52
PROVIDERS: ATTEND Orthopaedic Surgery
DX: G56.01 Carpal tunnel syndrome, right upper limb (principal); F17.210 Nicotine dependence, cigarettes, uncomplicated; F41.9 Anxiety disorder, unspecified; F98.8 Other specified behavioral and emotional disorders with onset usually occurring in childhood and adolescence; Z88.1 Allergy status to other antibiotic agents; Z88.5 Allergy status to narcotic agent; Z88.0 Allergy status to penicillin; Z79.899 Other long term (current) drug therapy
CPT/HCPCS: 81025; 64721; J2250; J1100; J2405; J0690; J2001; J3010; J2704

== ENCOUNTER → 2021-07-09 | Outpatient (CLI) | payer OTHER ==
[2021-07-09 14:52] LABS: Amylase 93 U/L (23-121); Lipase 44 U/L (14-63)
== END | disposition home or self-care (01) ==
LOC: LABWHC1 10:21
PROVIDERS: ATTEND Family Medicine
DX: K86.1 Other chronic pancreatitis (principal)
CPT/HCPCS: 36415; 82150; 83690